=== PATIENT | female | born 1955 | race Two or more races ===

== ENCOUNTER 2020-05-13 12:48 | Outpatient (CLI) | payer MEDICAID ==
[~2020-05-13] VITALS: Ht 154.9 cm; Wt 89.8 kg
[2020-05-13 13:06] VITALS: BP 114/74
--- NOTE | 2020-05-13 17:30 | Consultation ---
DATE OF CONSULTATION: 05/13/2020 GASTROLOGY CONSULTATION CHIEF COMPLAINT: Stool OB positive. PAST MEDICAL HISTORY: 1. Hypertension. 2. Hemorrhoids. 3. CVA. 4. History of diabetes. PAST SURGICAL HISTORY: History of brain surgery. MEDICATIONS: Please see medication reconciliation list. FAMILY HISTORY: Noncontributory. SOCIAL HISTORY: The patient has no history of tobacco, alcohol, or drug abuse. ALLERGIES: Penicillin and codeine. REVIEW OF SYSTEMS: Positive for abdominal pain, bloating, and blood in the stool. PHYSICAL EXAMINATION: VITAL SIGNS: Temperature 97.5, blood pressure is 114/74, pulse is 86, respirations 20. HEENT: Normocephalic, atraumatic. Sclerae anicteric. NECK: Supple. No evidence of obvious lymphadenopathy. CARDIOVASCULAR: Regular rate and rhythm. Plus S1 and S2. LUNGS: Clear to auscultation bilaterally. ABDOMEN: Positive bowel sounds. Soft and nontender. No rebound. No guarding. No peritoneal sign. EXTREMITIES: No cyanosis, no clubbing, no edema. ASSESSMENT AND PLAN: This is a 64-year-old female with blood in the stool, needs an endoscopy and colonoscopy for evaluation of GI bleeding. The patient was given the instruction for the colonoscopy and endoscopy. Risks and benefits of procedure were explained to her in detail. Plan is to schedule when authorization is obtained. Harvey Najera M.D. DR: [place] JOB#: [id number] CC:
[2020-05-14] MEDS ORDERED: DOCUSATE SODIU100 MG ORAL (09:41)
[2020-05-14] MEDS ORDERED: AMLODIPINE BESY10 MG ORAL (09:41)
[2020-05-14] MEDS ORDERED: VITAMIN D2 ORAL (09:41)
[2020-05-14] MEDS ORDERED: ATENOLOL25 MG ORAL (09:41)
[2020-05-14] MEDS ORDERED: IBUPROFEN600 M1 ORAL (09:41)
[2020-05-14] MEDS ORDERED: LISINOPRIL5 MG ORAL (09:41)
[2020-05-14] MEDS ORDERED: LORATADINE10 M1 PO (09:41)
== END 2020-05-13 14:48 | disposition home or self-care (01) ==
LOC: PAN 12:48
DX: K92.1 Melena (principal); I10 Essential (primary) hypertension; E11.9 Type 2 diabetes mellitus without complications; Z86.73 Personal history of transient ischemic attack (TIA), and cerebral infarction without residual deficits; Z88.0 Allergy status to penicillin; Z88.6 Allergy status to analgesic agent; R10.9 Unspecified abdominal pain; R14.0 Abdominal distension (gaseous)
CPT/HCPCS: G0463